=== PATIENT | male | born 1955 | race Caucasian/White ===

== ENCOUNTER 2016-10-29 09:37 | Day surgery (SDC) | payer MEDICARE, BC ==
[~2016-10-29 09:37] MED LIST: RINGERS SOLUTION,LACTATED 1,000 ML IV PRN
[2016-10-29] MEDS ORDERED: LEVOFLOXACIN/D5W 150 ML IV ONE (13:00)
[2016-10-29 14:34] VITALS: BP 130/66
--- NOTE | 2016-10-29 18:08 | OR ---
Operative Report - Dictated Report Narrative: OPERATIVE REPORT DATE OF OPERATION: 10/29/2016 PREOPERATIVE DIAGNOSIS: No prior dedicated colon studies POSTOPERATIVE DIAGNOSIS: Significant sigmoid diverticulosis with diverticulitis (pathology pending). Inflamed rectal polyp (pathology pending) OPERATION: Colonoscopy with colon biopsy at 25 cm and hot biopsy forceps polypectomy in the rectum SURGEON: Stacey Schultz MD ANESTHESIA: MAC Josue Rivera CRNA INDICATIONS FOR PROCEDURE: The patient is a 61-year-old male referred by Dr. Gallo for initial colon screening. There is no family history of colon cancer. He has had several bouts of presumed diverticulitis treated as an outpatient. FINDINGS: Significant sigmoid diverticulosis with inflammation (pathology pending). Inflamed appearing hyperplastic polyp in the rectum (pathology pending) NARRATIVE OF PROCEDURE: The patient was identified in the holding area, and prior to the administration of anesthetic, a multidisciplinary timeout was observed. With the patient in the left lateral position and after the administration of intravenous sedation, the perineum was inspected. There was no evidence of pilonidal disease or skin breakdown. The external appearance of the anus was normal. Sphincter tone was good. The flexible fiberoptic colonoscope was inserted into the rectum which was insufflated with air. The rectal mucosa and submucosal vascular pattern appeared normal with exception of several small nonspecific lymphoid aggregates. The prep was seen to be complete. At approximately 10 cm a hemorrhagic hyperplastic-appearing polyp was encountered. This was bypassed. The scope was advanced through the sigmoid colon which contained numerous diverticular openings and noncontiguous patches of inflamed mucosa which were present up to approximately 40 cm. The scope was advanced up the descending colon which was normal in appearance, and around the splenic flexure where the triangular haustral architecture of the transverse colon was seen. The scope was advanced across the transverse colon, around the hepatic flexure to the cecum, where the confluence of tenia and the ileocecal valve were identified. The mucosa at this level appeared normal. The scope was then slowly withdrawn in a circular fashion so that all aspects of colonic mucosa were inspected. The colon was normal in course and caliber. The haustral architecture appeared well preserved throughout with no evidence of external compression. The mucosa and submucosal vascular pattern of the proximal colon appeared normal, specifically there was no gross evidence to suggest colitis or inflammatory bowel disease and no AV malformations were seen. The inflammation in the sigmoid colon was compatible with diverticulitis. 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 The biopsy site was seen to be hemostatic. No proximal colon polyps were encountered. The scope was gradually withdrawn to the level of the rectum. The polyp in the rectum was biopsied and and thoroughly destroyed with electrocautery. The site was seen to be complete and hemostatic. As much insufflated air as possible was removed. The scope was withdrawn from the patient and the procedure terminated. The patient tolerated the anesthetic and procedure well without complication and was transferred back to the ambulatory surgery area awake and in stable condition. The patient remained stable throughout a period of postoperative observation. He denied abdominal discomfort, was able to tolerate by mouth intake, and was up without assistance. I shared the operative findings with the patient and he was given copies of the photographs which appear in the medical record. He was given a single dose of Levaquin 750 mg IV prior to discharge. He was discharged home with instructions not to engage in hazardous activity today, but may resume normal activity tomorrow, and advance diet as tolerated. He is to continue those medications as listed in the history and physical exam. I made arrangements to contact him with the biopsy reports and will make additional recommendations for treatment and follow-up based upon those results. I suggested a trial of Benefiber on a daily basis pending the results of his biopsies. Reviewed and electronically signed
== END 2016-10-29 09:38 | disposition home or self-care (01) ==
LOC: AMB 09:37
PROVIDERS: ATTEND Surgery
PROC: 0DBP8ZX Excision of Rectum, Via Natural or Artificial Opening Endoscopic, Diagnostic (ICD-10-PCS; principal; 2016-10-29 11:30)
DX: Z12.11 Encounter for screening for malignant neoplasm of colon (principal); K62.1 Rectal polyp; K57.32 Diverticulitis of large intestine without perforation or abscess without bleeding; I10 Essential (primary) hypertension; E78.5 Hyperlipidemia, unspecified; K21.9 Gastro-esophageal reflux disease without esophagitis; F41.1 Generalized anxiety disorder; Z87.891 Personal history of nicotine dependence; Z68.26 Body mass index [BMI] 26.0-26.9, adult

== ENCOUNTER 2020-05-05 20:54 | Observation (INO) ==
[2020-05-05] MEDS ORDERED: DILTIAZEM HCL 5 MG/ML VIAL IV ONE ×2 (21:23→21:56)
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
[2020-05-05] MEDS ORDERED: ENOXAPARIN SODIUM 100 MG/ML SYRG SC SCH (21:30)
[2020-05-05 21:32] LABS: Hematocrit 49.8 % (42.0-52.0); Hemoglobin 17.4 gm/dL (13.5-18.0); Mean Cell Volume 94.1 fl (78-100); Mean Corpuscular Hemoglobin 32.9 pg (27-31); Mean Corpuscular Hgb Conc 34.9 g/dl (32-36); Mean Platelet Volume 9.6 fl (8-11.3); Neutrophil # 6.2 K/mm3 (1.3-6.0); Neutrophil % 51.1 % (42-75.0); Platelet Count 368 K/mm3 (150-450); Red Blood Count 5.29 M/mm3 (4.7-6.0); Red Cell Distribution Width 12.4 % (11.5-14.0); White Blood Count 12.1 K/mm3 (4.0-10.5)
[2020-05-05] MEDS ORDERED: NORMAL SALINE 1,000 ML IV ONE (21:40)
[2020-05-05 21:49] LABS: ALT 23 U/L (19-67); AST 26 U/L (0-48); Albumin * 3.9 gm/dl (3.4-5.0); Alkaline Phosphatase * 102 U/L (50-170); Anion Gap 16.3 mmol/L (6.8-13.8); BUN/Creatinine Ratio 20.1 (9.0-21.6); Bilirubin, Total 0.8 mg/dL (0.0-1.1); Blood Urea Nitrogen 29 mg/dL (6-23); Ca. Corrected For Albumin 9.5 mg/dL (8.4-10.2); Calcium * 9.7 mg/dL (7.9-10.9); Carbon Dioxide 26.7 mmol/L (24-32.6); Chloride 99 mmol/L (97-106); Glucose * 202 mg/dL (70-110); Sodium 139 mmol/L (132-142); Total Protein 8.4 gm/dL (6.2-8.2)
[2020-05-05 21:50] LABS: Troponin I Less than 0.017 ng/mL (0.00-0.10)
[2020-05-05] MEDS ORDERED: METOPROLOL TARTRATE 25 MG TABLET PO ONE (22:13)
[2020-05-05] MEDS ORDERED: POTASSIUM CHLORIDE 10 MEQ in NORMAL SALINE 1,000 ML IV SCH (22:30)
[2020-05-05] MEDS: NORMAL SALINE 1,000 ML IV PRN (23:13)
[2020-05-05] MEDS ORDERED: DILTIAZEM HCL 30 MG TABLET PO ONE (23:45)
[2020-05-06] MEDS ORDERED: POTASSIUM CHLORIDE IN WATER 100 ML IV ONE ×2 (00:03→00:45)
[2020-05-06] MEDS ORDERED: ALPRAZolam 0.25 MG TABLET PO ONE (00:06)
[2020-05-06] MEDS ORDERED: AMIODARONE HCL 200 MG TABLET PO SCH (00:30)
[2020-05-06 06:37] LABS: Anion Gap 14.6 mmol/L (6.8-13.8); Calcium * 8.4 mg/dL (7.9-10.9); Carbon Dioxide 24.6 mmol/L (24-32.6); Estimated Creat Clear 61.8; Potassium 3.2 mmol/L (3.4-4.6)
[2020-05-06] MEDS: NORMAL SALINE 1,000 ML IV PRN ×3 (07:02→23:20)
[2020-05-06] MEDS ORDERED: DILTIAZEM HCL 5 MG/ML VIAL IV ONE (08:45)
[2020-05-06] MEDS ORDERED: METOPROLOL TARTRATE 1 MG/ML AMPUL IV ONE (08:46)
[2020-05-06] MEDS ORDERED: FLUTICASONE PROPIONATE 120 SPRAY INHALER NS PRN (08:52)
[2020-05-06] MEDS ORDERED: DULoxetine HCL 20 MG CAPSULE.SA PO SCH ×2 (09:00→16:15)
[2020-05-06] MEDS ORDERED: ENOXAPARIN SODIUM 40 MG/0.4 ML SYRG SC SCH (09:00)
[2020-05-06] MEDS ORDERED: ENOXAPARIN SODIUM 100 MG/ML SYRG SC SCH (09:00)
[2020-05-06] MEDS ORDERED: METOPROLOL TARTRATE 100 MG TABLET PO SCH ×3 (09:00→21:00)
[2020-05-06] MEDS: PSYLLIUM SEED 1 PACKET PACKET PO SCH (09:28)
[2020-05-06] MEDS: GABAPENTIN 300 MG CAPSULE PO SCH (09:29)
[2020-05-06] MEDS: ACETAMINOPHEN 650 MG TABLET PO SCH (09:29)
[2020-05-06] MEDS: LOSARTAN POTASSIUM 50 MG TABLET PO SCH (10:03)
[2020-05-06] MEDS: HYDROCHLOROTHIAZIDE 12.5 MG CAPSULE PO SCH ×2 (10:03→10:05)
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
[2020-05-06] MEDS ORDERED: DILTIAZEM HCL 60 MG CAP.SR.12H PO SCH (11:00)
[2020-05-06] MEDS ORDERED: DILTIAZEM HCL 60 MG TABLET PO SCH ×2 (11:30→16:25)
[2020-05-06] MEDS: ENOXAPARIN SODIUM 40 MG, ENOXAPARIN SODIUM 30 MG SC SCH ×4 (11:31→21:28)
--- NOTE | 2020-05-06 16:14 | PN ---
[facility] Note - Interim Date: 05/06/20 Time: 16:12 Narrative: 05/06/20 16:13 Sayda heart went back into normal sinus rhythm this afternoon. He is now having some mild bradycardia with heart rate in the upper 40s and lower 50s. I have reduced his diltiazem from 60 mg 3 times daily to 30 mg 3 times daily and have reduced the metoprolol back to 50 mg twice daily from 100 mg twice daily. I will continue to monitor continuously.
[2020-05-06] MEDS ORDERED: GABAPENTIN 600 MG TABLET PO SCH (21:00)
[2020-05-06] MEDS ORDERED: TEMAZEPAM 15 MG CAPSULE PO SCH (21:00)
[2020-05-06] MEDS ORDERED: METOPROLOL TARTRATE 50 MG TABLET ONE (21:17)
[2020-05-06] MEDS ORDERED: DILTIAZEM HCL 30 MG TABLET ONE (21:22)
[2020-05-06] MEDS: DILTIAZEM HCL 60 MG TABLET PO SCH (21:27)
[2020-05-07] MEDS: DILTIAZEM HCL 60 MG TABLET PO SCH (05:17)
[2020-05-07 06:41] LABS: Hematocrit 36.3 % (42.0-52.0); Hemoglobin 12.3 gm/dL (13.5-18.0); Mean Cell Volume 96.8 fl (78-100); Mean Corpuscular Hemoglobin 32.8 pg (27-31); Mean Corpuscular Hgb Conc 33.9 g/dl (32-36); Neutrophil # 4.6 K/mm3 (1.3-6.0); Platelet Count 242 K/mm3 (150-450); Red Blood Count 3.75 M/mm3 (4.7-6.0); Red Cell Distribution Width 12.7 % (11.5-14.0); White Blood Count 8.7 K/mm3 (4.0-10.5)
[2020-05-07 06:58] LABS: Albumin * 2.6 gm/dl (3.4-5.0); Anion Gap 12.3 mmol/L (6.8-13.8); BUN/Creatinine Ratio 16.9 (9.0-21.6); Bilirubin, Total 0.8 mg/dL (0.0-1.1); Ca. Corrected For Albumin 8.8 mg/dL (8.4-10.2); Potassium 3.3 mmol/L (3.4-4.6); Total Protein 5.7 gm/dL (6.2-8.2)
[2020-05-07] MEDS ORDERED: POTASSIUM BICARBONATE/CIT AC 25 MEQ TABLET.EFF PO ONE (08:23)
[2020-05-07] MEDS ORDERED: DULoxetine HCL 20 MG CAPSULE.SA PO SCH (09:00)
[2020-05-07] MEDS ORDERED: METOPROLOL TARTRATE 50 MG TABLET PO SCH (09:00)
--- NOTE | 2020-05-07 09:16 | DS ---
(1) Atrial fibrillation with RVR Problem: Acute (2) Hypokalemia Problem: Acute (3) Below knee amputation status Problem: Chronic Qualifiers: Laterality: left Qualified Code(s): Z89.512 - Acquired absence of left leg below knee (4) GERD (gastroesophageal reflux disease) Problem: Chronic Qualifiers: (5) Prediabetes Problem: Chronic (6) Hyperlipidemia Problem: Chronic Qualifiers: (7) Hypertension Problem: Chronic Qualifiers: Hypertension type: essential hypertension Qualified Code(s): I10 - Essential (primary) hypertension (8) Below knee amputation status Problem: Chronic Date of Discharge:: 05/07/20 Hospital Course: 64-year-old male with a past medical history of hypertension, hyperlipidemia, prediabetes, GERD, anxiety presents from home with complaints of shortness of breath and palpitations. He was found to be in A. fib with RVR. He was started on diltiazem and his metoprolol was continued. He converted on his own. His Brian Vasc score is 1, so he does not warrant anticoagulation. His potassium was also found to be slightly low. He received repletion with both IV and oral potassium. I will have him follow-up with a [facility] hcm developer within 1 to 2 weeks of discharge for further evaluation. He will follow-up with me within 1 to 2 weeks of discharge as well. His heart rate is ranging in the 40-50's so I will hold his metoprolol and continue the diltiazem on discharge. Procedures Performed: none Results and Findings: Lab Pending Results 05/05/20 21:25: WBC 12.1 H, RBC 5.29, Hgb 17.4, Hct 49.8, MCV 94.1, MCH 32.9 H, MCHC 34.9, RDW 12.4, Plt Count 368, MPV 9.6, Immature Gran % (Auto) 0.50 H, Immature Gran # (Auto) 0.06 H, Neutrophils % 51.1, Lymphocytes % 35.2, Monocytes % 11.3 H, Eosinophils % 1.1, Basophils % 0.8, Nucleated RBC % 0.0, Neutrophils # 6.2 H, Lymphocytes # 4.25 H, Monocytes # 1.4 H, Eosinophils # 0.1, Absolute Basophils 0.1 05/05/20 21:25: Sodium 139, Plasma Sodium 141, Potassium 3.0 L, Chloride 99, Carbon Dioxide 26.7, Anion Gap 16.3 H, BUN 29 H, Creatinine 1.44 H, Est GFR (Non-Af Amer) 52 L D, BUN/Creatinine Ratio 20.1, Random Glucose 202 H, Calcium 9.7, Calcium Adj for Albumin 9.5, Total Bilirubin 0.8, AST 26, ALT 23, Alkaline Phosphatase 102, Troponin I Less than 0.017, Total Protein 8.4 H, Albumin 3.9 05/06/20 06:15: Sodium 143 H, Plasma Sodium 143 H, Potassium 3.2 L, Chloride 107 H, Carbon Dioxide 24.6, Anion Gap 14.6 H, BUN 20, Creatinine 1.05, Est GFR (Non- Af Amer) 76 D, BUN/Creatinine Ratio 19.0, Random Glucose 108 D, Calcium 8.4 05/07/20 06:30: WBC 8.7 D, RBC 3.75 L, Hgb 12.3 L, Hct 36.3 L, MCV 96.8, MCH 32.8 H, MCHC 33.9, RDW 12.7, Plt Count 242, MPV 10.0, Immature Gran % (Auto) 0.30, Immature Gran # (Auto) 0.03, Neutrophils % 53.0, Lymphocytes % 33.2, Monocytes % 10.7 H, Eosinophils % 2.1, Basophils % 0.7, Nucleated RBC % 0.0, Neutrophils # 4.6, Lymphocytes # 2.89, Monocytes # 0.9, Eosinophils # 0.2, Absolute Basophils 0.1 05/07/20 06:30: Sodium 141, Plasma Sodium 141, Potassium 3.3 L, Chloride 109 H, Carbon Dioxide 23.0 L, Anion Gap 12.3, BUN 15, Creatinine 0.89, Est GFR (Non-Af Amer) 91, BUN/Creatinine Ratio 16.9, Random Glucose 96, Calcium 8.0, Calcium Adj for Albumin 8.8, Total Bilirubin 0.8, AST 21, ALT 25, Alkaline Phosphatase 64, Total Protein 5.7 L, Albumin 2.6 L Discharge Location: Home Disposition: Home self-care Condition: Stable Discharge Activity: Activity as tolerated Discharge Diet: Consistent carbs Referrals: Deedee Agarwal MD [Primary Care Provider] - Problem Oriented Discharge Instructions to Patient/Family: Atrial Fibrillation, [id number], Preventing Atrial Fibrillation-Related Stroke Additional Patient Instructions (free text): Follow up with [facility] in 1 week. Follow-up with his PCP in 1-2 weeks of discharge. I will discontinue his metoprolo and continue him on dilitiazem. Prescriptions (Any new or edited meds): Diltiazem HCl [Cardizem] 30 mg PO QID #120 tab Transmission Status: Pending to [facility], [place], [place] Complete Home Medications List: Complete Home Medication List: Wheat Dextrin [Benefiber] 1 ea PO DAILY 10/06/16 cetirizine 10 mg tablet 10 mg PO DAILY #30 tab 12/21/19 fluticasone propionate 50 mcg/actuation nasal spray,suspension 1 spray BERRY DAILY PRN #9.9 g 12/21/19 hydrochlorothiazide 12.5 mg tablet 12.5 mg PO DAILY #90 tab 01/11/20 losartan 100 mg tablet 100 mg PO DAILY #90 tab 01/11/20 acetaminophen 650 mg tablet,extended release 650 mg PO DAILY tab 03/22/20 amlodipine 2.5 mg tablet See Rx Instructions .ROUTE .COMPLEX #90 tab 05/01/20 Duloxetine HCl [Cymbalta] See Rx Instructions PO DAILY 05/06/20 Gabapentin 300 mg PO DAILY 05/06/20 Gabapentin 600 mg PO HS 05/06/20 Diltiazem HCl [Cardizem] 30 mg PO QID #120 tab 05/07/20 Forms: Patient Portal Registration
[2020-05-07] MEDS: PSYLLIUM SEED 1 PACKET PACKET PO SCH (10:13)
[2020-05-07] MEDS: HYDROCHLOROTHIAZIDE 12.5 MG CAPSULE PO SCH (10:13)
[2020-05-07] MEDS: GABAPENTIN 300 MG CAPSULE PO SCH (10:14)
[2020-05-07] MEDS: LOSARTAN POTASSIUM 50 MG TABLET PO SCH (10:17)
[2020-05-07] MEDS: ACETAMINOPHEN 650 MG TABLET PO SCH (10:18)
[2020-05-07] MEDS: ENOXAPARIN SODIUM 40 MG, ENOXAPARIN SODIUM 30 MG SC SCH ×2 (10:20)
[2020-05-07 10:54] VITALS: BP 149/91
== END 2020-05-07 11:25 | disposition home or self-care (01) ==
LOC: ER 20:54 → INTOOBSV 23:56 → MS 23:56
PROVIDERS: ADMIT Family Medicine; ATTEND Internal Medicine
DX: I48.20 Chronic atrial fibrillation, unspecified; I10 Essential (primary) hypertension; Z87.891 Personal history of nicotine dependence; E87.6 Hypokalemia; E86.0 Dehydration; Z89.512 Acquired absence of left leg below knee; K21.9 Gastro-esophageal reflux disease without esophagitis; N17.9 Acute kidney failure, unspecified; F41.9 Anxiety disorder, unspecified; R73.03 Prediabetes
CPT/HCPCS: 36415; 71020; 71046; 80048; 80053; 84484; 85025; 93005; 96365; 96366; 96367; 96372; 96375; 96376; 99285; G0378

== ENCOUNTER 2020-05-07 21:15 | Observation (INO) ==
[2020-05-07] MEDS ORDERED: DILTIAZEM HCL 5 MG/ML VIAL IV ONE (21:33)
[2020-05-07] MEDS ORDERED: NORMAL SALINE 1,000 ML IV ONE (21:33)
[2020-05-07] MEDS ORDERED: DILTIAZEM HCL 125 MG in DEXTROSE 5 % IN WATER 100 ML IV PRN ×4 (21:34→22:30)
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
[2020-05-07 21:52] LABS: Hematocrit 43.7 % (42.0-52.0); Mean Corpuscular Hgb Conc 34.3 g/dl (32-36); Mean Platelet Volume 9.8 fl (8-11.3); Neutrophil # 5.6 K/mm3 (1.3-6.0); Neutrophil % 57.2 % (42-75.0); Platelet Count 284 K/mm3 (150-450); Red Blood Count 4.55 M/mm3 (4.7-6.0); Red Cell Distribution Width 12.4 % (11.5-14.0); White Blood Count 9.9 K/mm3 (4.0-10.5)
[2020-05-07 22:11] LABS: ALT 36 U/L (19-67); AST 27 U/L (0-48); Albumin * 3.5 gm/dl (3.4-5.0); Alkaline Phosphatase * 80 U/L (50-170); Anion Gap 12.9 mmol/L (6.8-13.8); BNP * 803 pg/mL (5-175); BUN/Creatinine Ratio 18.1 (9.0-21.6); Bilirubin, Total 0.7 mg/dL (0.0-1.1); Blood Urea Nitrogen 21 mg/dL (6-23); Ca. Corrected For Albumin 9.2 mg/dL (8.4-10.2); Calcium * 9.1 mg/dL (7.9-10.9); Carbon Dioxide 25.3 mmol/L (24-32.6); Chloride 105 mmol/L (97-106); Glucose * 156 mg/dL (70-110); Potassium 3.2 mmol/L (3.4-4.6); Sodium 140 mmol/L (132-142); Total Protein 7.4 gm/dL (6.2-8.2)
[2020-05-07 22:12] LABS: Troponin I Less than 0.017 ng/mL (0.00-0.10)
[2020-05-07] MEDS ORDERED: HEPARIN SODIUM,PORCINE 5,000 UNITS/ML VIAL IV ONE (22:28)
[2020-05-07] MEDS ORDERED: HEPARIN SODIUM,PORCINE/D5W 25,000 UNITS/500 ML BAG IV PRN (22:29)
[2020-05-07 22:48] LABS: INR 1.01 INR (0.92-1.08); Partial Thrombolplastin Time 24.3 Seconds (24-32)
[2020-05-08] MEDS: DILTIAZEM HCL 30 MG TABLET PO SCH ×2 (08:09)
[2020-05-08] MEDS ORDERED: POTASSIUM BICARBONATE/CIT AC 25 MEQ TABLET.EFF PO ONE (08:55)
[2020-05-08] MEDS ORDERED: DILTIAZEM HCL 30 MG TABLET PO SCH (09:00)
[2020-05-08] MEDS ORDERED: DILTIAZEM HCL 60 MG TABLET PO SCH (09:00)
[2020-05-08] MEDS ORDERED: POTASSIUM BICARBONATE/CIT AC 25 MEQ TABLET.EFF ONE ×2 (10:03)
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
[2020-05-08] MEDS ORDERED: DULoxetine HCL 30 MG CAPSULE.SA PO SCH (11:15)
[2020-05-08 15:05] VITALS: BP 133/86
[2020-05-08] MEDS ORDERED: traZODone HCL 50 MG TABLET PO SCH (21:00)
[2020-05-09] MEDS ORDERED: HYDROCHLOROTHIAZIDE 12.5 MG CAPSULE PO SCH (09:00)
== END 2020-05-08 15:25 | disposition home or self-care (01) ==
LOC: ER 21:15 → MS 21:15
PROVIDERS: ADMIT Internal Medicine; ATTEND Internal Medicine
DX: K21.9 Gastro-esophageal reflux disease without esophagitis; Z89.512 Acquired absence of left leg below knee; R73.03 Prediabetes; E87.6 Hypokalemia; Z87.891 Personal history of nicotine dependence; I48.20 Chronic atrial fibrillation, unspecified; E78.5 Hyperlipidemia, unspecified; I10 Essential (primary) hypertension; F41.9 Anxiety disorder, unspecified
CPT/HCPCS: 36415; 80053; 83519; 83735; 83880; 84484; 85025; 85610; 85730; 93005; 96374; 96375; 99284; 99285; G0378

== ENCOUNTER 2020-09-30 17:07 | Inpatient (IN) ==
[2020-09-30] MEDS ORDERED: DILTIAZEM HCL 5 MG/ML VIAL IV ONE (17:25)
[2020-09-30 17:31] LABS: Hematocrit 43.3 % (42.0-52.0); Hemoglobin 14.8 gm/dL (13.5-18.0); Mean Cell Volume 90.8 fl (78-100); Mean Corpuscular Hgb Conc 34.2 g/dl (32-36); Mean Platelet Volume 9.6 fl (8-11.3); Platelet Count 421 K/mm3 (150-450); Red Blood Count 4.77 M/mm3 (4.7-6.0); Red Cell Distribution Width 12.6 % (11.5-14.0); White Blood Count 17.2 K/mm3 (4.0-10.5)
[2020-09-30 17:32] LABS: Total Cells Counted 100
[2020-09-30 17:42] LABS: Prothrombin Time (Patient) 10.7 Seconds (9.1-10.7)
[2020-09-30 17:44] LABS: INR 1.08 INR (0.92-1.08); Partial Thrombolplastin Time 22.6 Seconds (24-32)
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
[2020-09-30 17:48] LABS: ALT 32 U/L (19-67); AST 16 U/L (0-48); Albumin * 3.9 gm/dl (3.4-5.0); Alkaline Phosphatase * 94 U/L (50-170); BUN/Creatinine Ratio 23.5 (9.0-21.6); Bilirubin, Total 0.3 mg/dL (0.0-1.1); Blood Urea Nitrogen 28 mg/dL (6-23); Ca. Corrected For Albumin 9.5 mg/dL (8.4-10.2); Calcium * 9.7 mg/dL (7.9-10.9); Carbon Dioxide 26.8 mmol/L (24-32.6); Chloride 104 mmol/L (97-106); Glucose * 166 mg/dL (70-110); Potassium 3.8 mmol/L (3.4-4.6); Sodium 139 mmol/L (132-142); Total Protein 7.9 gm/dL (6.2-8.2); Troponin I Less than 0.017 ng/mL (0.00-0.10)
[2020-09-30 17:53] LABS: Atypical (Reactive) Lymph 3 % (0-2); Lymphocyte 13 % (20-51); Monocyte 10 % (0-9); Neutrophil 74 % (42-75); Neutrophil # 12.7 K/mm3 (1.3-6.0); Platelet Estimate Normal (NORMAL)
[2020-09-30 17:54] LABS: RBC Morphology Normal (NORMAL)
[2020-09-30] MEDS: DILTIAZEM HCL 125 MG in DEXTROSE 5 % IN WATER 100 ML IV PRN ×2 (18:07)
[2020-09-30] MEDS ORDERED: ENOXAPARIN SODIUM 80 MG/0.8 ML DISP.SYRIN SC ONE (18:11)
[2020-09-30] MEDS ORDERED: ENOXAPARIN SODIUM 100 MG/ML SYRG SC ONE (19:40)
[2020-09-30] MEDS ORDERED: ACETAMINOPHEN 325 MG TABLET PO PRN (20:46)
[2020-09-30] MEDS ORDERED: FLUTICASONE PROPIONATE 120 SPRAY INHALER NS PRN (20:46)
[2020-09-30] MEDS ORDERED: ACETAMINOPHEN 650 MG PO PRN (20:46)
[2020-09-30] MEDS ORDERED: ENOXAPARIN SODIUM 40 MG/0.4 ML SYRG SC SCH (21:00)
[2020-09-30] MEDS: ASPIRIN 81 MG TABLET.DR PO SCH (21:09)
[2020-09-30] MEDS: LORATADINE 10 MG TABLET PO SCH (21:10)
[2020-09-30] MEDS: GABAPENTIN 600 MG TABLET PO SCH (21:21)
[2020-09-30] MEDS: traZODone HCL 50 MG TABLET PO SCH (21:22)
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
[2020-09-30] MEDS ORDERED: ENOXAPARIN SODIUM 80 MG/0.8 ML DISP.SYRIN SC SCH (21:45)
[2020-10-01 06:13] LABS: Hematocrit 42.8 % (42.0-52.0); Hemoglobin 14.5 gm/dL (13.5-18.0); Mean Corpuscular Hemoglobin 31.2 pg (27-31); Mean Corpuscular Hgb Conc 33.9 g/dl (32-36); Mean Platelet Volume 9.7 fl (8-11.3); Platelet Count 386 K/mm3 (150-450); Red Blood Count 4.65 M/mm3 (4.7-6.0); Red Cell Distribution Width 12.8 % (11.5-14.0); White Blood Count 15.3 K/mm3 (4.0-10.5)
[2020-10-01 06:17] LABS: Total Cells Counted 100
[2020-10-01 06:55] LABS: Atypical (Reactive) Lymph 5 % (0-2); Band 3 % (0-2.0); Lymphocyte 15 % (20-51); Monocyte 9 % (0-9); Neutrophil 68 % (42-75); Neutrophil # 10.4 K/mm3 (1.3-6.0)
[2020-10-01 06:56] LABS: Platelet Estimate Normal (NORMAL); RBC Morphology Normal (NORMAL)
[2020-10-01] MEDS: PANTOPRAZOLE SODIUM 20 MG TABLET.DR PO SCH (08:49)
[2020-10-01] MEDS: ASPIRIN 81 MG TABLET.DR PO SCH (08:49)
[2020-10-01] MEDS: LORATADINE 10 MG TABLET PO SCH (08:49)
[2020-10-01] MEDS: amLODIPine BESYLATE 5 MG TABLET PO SCH (08:49)
[2020-10-01] MEDS ORDERED: ENOXAPARIN SODIUM 40 MG, ENOXAPARIN SODIUM 30 MG SC SCH ×2 (09:45)
[2020-10-01] MEDS: DILTIAZEM HCL 125 MG in DEXTROSE 5 % IN WATER 100 ML IV PRN ×2 (10:40)
[2020-10-01] MEDS ORDERED: DILTIAZEM HCL 60 MG TABLET PO SCH ×2 (11:30→16:45)
--- NOTE | 2020-10-01 11:41 | PN ---
Subjective - Date and Time Seen Date: 10/01/20 Time: 10:20 Subjective Narrative: He states he feels better than he did when he first came in. He continues to have some shortness of breath with exertion but denies chest pain or abdominal pain. Objective - Review of Systems Generalized/Overall Review: Denies: Fever Respiratory: Reports: Shortness of Breath - With exertion Cardiac: Denies: Chest Pain Abdominal: Denies: Abdominal Pain Misc: All systems neg except as marked - Vitals Vitals: Last Vital Signs Temp 36.5 C 10/01/20 06:24 Pulse 99 10/01/20 10:40 Resp 16 10/01/20 06:24 BP 144/86 10/01/20 10:40 Pulse Ox 96 10/01/20 10:36 - Abnormal Lab Findings Abnormal Lab Findings: Abnormal Lab Results 09/30/20 09/30/20 09/30/20 Range/Units 17:25 17:25 17:25 WBC 17.2 H (4.0-10.5) K/mm3 RBC (4.7-6.0) M/mm3 MCH (27-31) pg Band Neuts % (Manual) (0-2.0) % Lymphocytes % (Manual) 13 L (20-51) % Monocytes % (Manual) 10 H (0-9) % Neutrophils # (Manual) 12.7 H (1.3-6.0) K/mm3 Monocytes # (Manual) 1.7 H (0.0-1.0) k/mm3 Atypic/Reactive Lymphs 3 H (0-2) % PTT (Woodford) 22.6 L (24-32) Seconds BUN 28 H D (6-23) mg/dL BUN/Creatinine Ratio 23.5 H (9.0-21.6) Random Glucose 166 H (70-110) mg/dL 10/01/20 Range/Units 06:05 WBC 15.3 H (4.0-10.5) K/mm3 RBC 4.65 L (4.7-6.0) M/mm3 MCH 31.2 H (27-31) pg Band Neuts % (Manual) 3 H (0-2.0) % Lymphocytes % (Manual) 15 L (20-51) % Monocytes % (Manual) (0-9) % Neutrophils # (Manual) 10.4 H (1.3-6.0) K/mm3 Monocytes # (Manual) 1.4 H (0.0-1.0) k/mm3 Atypic/Reactive Lymphs 5 H (0-2) % PTT (Woodford) (24-32) Seconds BUN (6-23) mg/dL BUN/Creatinine Ratio (9.0-21.6) Random Glucose (70-110) mg/dL - Exam Constitutional: Present: Alert, Cooperative, Well developed, Well nourished, No distress ENT Exam: Present: hearing grossly normal Neck: Present: non-tender, supple. Absent: lymphadenopathy (R), lymphadenopathy (L) Respiratory: Present: lungs clear, no respiratory distress, no accessory muscle use, No wheezing. Absent: crackles, rhonchi Cardiovascular/Chest: Present: normal peripheral pulses, no edema, no murmur, irregularly irregular Abdomen: Present: Normal bowel sounds, soft, nontender Extremity: Present: no pedal edema, other - Left BKA Skin Exam: Present: normal color, warm/dry Appearance: Present: appropriate appearance, appropriate insight Eye contact: Present: cooperative Thoughts: Present: normal thought pattern Assessment/Plan Plan Narrative: 65-year-old male with a past medical history of attention, hyperlipidemia, imp aired fasting glucose, GERD, anxiety, atrial fibrillation not on anticoagulation due to CHADS2 score presents from home with complaints of palpitations. He was found to be in A. fib with RVR heart rate in the 140s. He was started on a diltiazem drip with good response. He is feeling better today. The diltiazem drip was tapered down to 5 mg/h heart rate continues to be controlled. His [id number] score was previously 1 but now is 2 because he turns 65 years old month. Due to this change anticoagulation will be recommended for him. I will continue him on Lovenox 70 mg twice daily. Pharmacy is checking to see if the direct oral anticoagulants are covered by his insurance. He will either be sent home on warfarin or a DOAC. The leukocytosis is likely reactive and secondary to a recent steroid joint injection. He has no other systemic signs of infection. White blood cell count is also trending downwards Plan #1 transition him back to oral diltiazem #2 continue with home medications for comorbidities #3 continue with telemetry #4 continue with anticoagulation - Problems/Diagnosis (1) Atrial fibrillation with RVR Problem: Acute (2) Leukocytosis Problem: Acute Qualifiers: Leukocytosis type: other Qualified Code(s): D72.828 - Other elevated white blood cell count (3) Anxiety Problem: Chronic (4) Below knee amputation status Problem: Chronic Qualifiers: Laterality: left Qualified Code(s): Z89.512 - Acquired absence of left leg below knee (5) GERD (gastroesophageal reflux disease) Problem: Chronic Qualifiers:
[2020-10-01] MEDS: DILTIAZEM HCL PO SCH ×2 (16:55)
[2020-10-01] MEDS ORDERED: DILTIAZEM HCL 30 MG TABLET PO SCH (17:00)
[2020-10-01] MEDS ORDERED: METOPROLOL TARTRATE 1 MG/ML AMPUL IV ONE (18:16)
[2020-10-01] MEDS: GABAPENTIN 600 MG TABLET PO SCH (20:55)
[2020-10-01] MEDS: traZODone HCL 50 MG TABLET PO SCH (20:56)
[2020-10-01] MEDS: ENOXAPARIN SODIUM 80 MG/0.8 ML DISP.SYRIN SC SCH (21:00)
[2020-10-02] MEDS: DILTIAZEM HCL PO SCH ×4 (00:44→08:49)
[2020-10-02 06:50] LABS: Hemoglobin 14.8 gm/dL (13.5-18.0); Mean Cell Volume 91.1 fl (78-100); Mean Corpuscular Hemoglobin 30.6 pg (27-31); Mean Corpuscular Hgb Conc 33.6 g/dl (32-36); Mean Platelet Volume 9.7 fl (8-11.3); Platelet Count 413 K/mm3 (150-450); Red Blood Count 4.83 M/mm3 (4.7-6.0); Red Cell Distribution Width 12.7 % (11.5-14.0); White Blood Count 16.2 K/mm3 (4.0-10.5)
[2020-10-02] MEDS: PANTOPRAZOLE SODIUM 20 MG TABLET.DR PO SCH (07:06)
[2020-10-02] MEDS: ENOXAPARIN SODIUM 80 MG/0.8 ML DISP.SYRIN SC SCH (07:06)
[2020-10-02] MEDS: LORATADINE 10 MG TABLET PO SCH (08:48)
[2020-10-02] MEDS: ASPIRIN 81 MG TABLET.DR PO SCH (08:48)
[2020-10-02] MEDS: amLODIPine BESYLATE 5 MG TABLET PO SCH (08:50)
[2020-10-02] MEDS ORDERED: ENOXAPARIN SODIUM 40 MG/0.4 ML SYRG SC SCH (09:00)
--- NOTE | 2020-10-02 11:01 | DS ---
(1) Atrial fibrillation with RVR Problem: Acute (2) Leukocytosis Problem: Acute Qualifiers: Leukocytosis type: other Qualified Code(s): D72.828 - Other elevated white blood cell count (3) Anxiety Problem: Chronic (4) Below knee amputation status Problem: Chronic Qualifiers: Laterality: left Qualified Code(s): Z89.512 - Acquired absence of left leg below knee (5) GERD (gastroesophageal reflux disease) Problem: Chronic Qualifiers: (6) Prediabetes Problem: Chronic (7) Hypertension Problem: Chronic Qualifiers: Hypertension type: essential hypertension Qualified Code(s): I10 - Essential (primary) hypertension (8) Below knee amputation status Problem: Chronic Hospital Course: 65-year-old male with a past medical history of attention, hyperlipidemia, impaired fasting glucose, GERD, anxiety, atrial fibrillation not on anticoagulation due to CHADS2 score presents from home with complaints of palpitations. He was found to be in A. fib with RVR heart rate in the 140s. He was started on a diltiazem drip with good response. He is feeling better today. The diltiazem drip was tapered down to 5 mg/h heart rate continues to be controlled. His [id number] score was previously 1 but now is 2 because he turns 65 years old month. Due to this change anticoagulation will be recommended for him. I will continue him on Lovenox 70 mg twice daily. Pharmacy is checking to see if the direct oral anticoagulants are covered by his insurance. He will either be sent home on warfarin or a DOAC. The leukocytosis is likely reactive and secondary to a recent steroid joint injection. He has no other systemic signs of infection. White blood cell count is also trending downwards. Heart rate has improved with the increased dose on the diltiazem. He will go home on warfarin 5 mg daily. He will follow up with the Coumadin clinic. He is stable for discharge home today. He will follow-up with his bobbin disker within the next 1 to 2 weeks. He also follow-up with me in 1 to 2 weeks. Procedures Performed: none Results and Findings: Lab Pending Results 09/30/20 17:25: WBC 17.2 H, RBC 4.77, Hgb 14.8, Hct 43.3, MCV 90.8, MCH 31.0, MCHC 34.2, RDW 12.6, Plt Count 421, MPV 9.6, Neutrophils % (Manual) 74, Lymphocytes % (Manual) 13 L, Monocytes % (Manual) 10 H, Neutrophils # (Manual) 12.7 H, Lymphocytes # (Manual) 2.2, Monocytes # (Manual) 1.7 H, Atypic/Reactive Lymphs 3 H, Platelet Estimate Normal, RBC Morphology Normal 09/30/20 17:25: PT 10.7, INR (Anticoag Therapy) 1.08, PTT (Antonina) 22.6 L 09/30/20 17:25: Sodium 139, Plasma Sodium 140, Potassium 3.8, Chloride 104, Carbon Dioxide 26.8, Anion Gap 12.0, BUN 28 H D, Creatinine 1.19, Est GFR (Non- Af Amer) 65, BUN/Creatinine Ratio 23.5 H, Random Glucose 166 H, Calcium 9.7, Calcium Adj for Albumin 9.5, Total Bilirubin 0.3, AST 16, ALT 32, Alkaline Phosphatase 94, Troponin I Less than 0.017, Total Protein 7.9, Albumin 3.9 09/30/20 18:07: SARS-CoV-2 (PCR) Not detected 10/01/20 06:05: WBC 15.3 H, RBC 4.65 L, Hgb 14.5, Hct 42.8, MCV 92.0, MCH 31.2 H, MCHC 33.9, RDW 12.8, Plt Count 386, MPV 9.7, Neutrophils % (Manual) 68, Band Neuts % (Manual) 3 H, Lymphocytes % (Manual) 15 L, Monocytes % (Manual) 9, Neutrophils # (Manual) 10.4 H, Lymphocytes # (Manual) 2.3, Monocytes # (Manual) 1.4 H, Atypic/Reactive Lymphs 5 H, Platelet Estimate Normal, RBC Morphology Normal 10/02/20 06:15: WBC 16.2 H, RBC 4.83, Hgb 14.8, Hct 44.0, MCV 91.1, MCH 30.6, MCHC 33.6, RDW 12.7, Plt Count 413, MPV 9.7, Immature Gran % (Auto) 0.90 H, Immature Gran # (Auto) 0.15 H, Neutrophils % 74.0, Lymphocytes % 15.7 L, Monocytes % 8.8, Eosinophils % 0.1, Basophils % 0.5, Nucleated RBC % 0.0, Neutrophils # 12.0 H, Lymphocytes # 2.54, Monocytes # 1.4 H, Eosinophils # 0.0, Absolute Basophils 0.1 Discharge Location: Home Disposition: Home self-care Condition: Good Discharge Activity: Activity as tolerated Discharge Diet: General/regular food Referrals: Deedee Carrillo MD [Staff Physician] - Problem Oriented Discharge Instructions to Patient/Family: Atrial Fibrillation, [id number] Additional Patient Instructions (free text): Patient will need a cardiology follow-up @ discharge. Prescriptions (Any new or edited meds): Warfarin Sodium [Coumadin] 5 mg PO QPM #30 tab Transmission Status: Received by [place], [place] Diltiazem HCl [Diltiazem 24Hr ER] 360 mg PO DAILY #30 cap.er.24h Transmission Status: Received by [facility], [place], [place] Complete Home Medications List: Complete Home Medication List: Wheat Dextrin [Benefiber] 1 ea PO DAILY 10/06/16 fluticasone propionate 50 mcg/actuation nasal spray,suspension 1 spray BERRY DAILY PRN #9.9 g 12/21/19 trazodone 50 mg tablet 25 mg PO HS #30 tab 05/17/20 aspirin 81 mg tablet,delayed release 81 mg PO DAILY 05/23/20 acetaminophen 650 mg tablet,extended release 650 mg PO DAILY PRN tab 06/21/20 omeprazole 20 mg capsule,delayed release 20 mg PO DAILY 06/21/20 cetirizine 10 mg tablet 10 mg PO DAILY #30 tab 07/02/20 gabapentin 600 mg tablet 600 mg PO HS #90 tab 07/30/20 amlodipine 2.5 mg tablet 2.5 mg PO DAILY tab 09/26/20 Diltiazem HCl [Diltiazem 24Hr ER] 360 mg PO DAILY #30 cap.er.24h 10/02/20 Warfarin Sodium [Coumadin] 5 mg PO QPM #30 tab 10/02/20 Forms: Patient Portal Registration
[2020-10-02 12:49] VITALS: BP 155/107
[2020-10-02] MEDS ORDERED: DILTIAZEM HCL 90 MG TABLET PO SCH (15:00)
== END 2020-10-02 12:53 | disposition home or self-care (01) | DRG 310 ==
LOC: ER 17:07 → MS 17:07 → OBSVTOIN 19:32 → MS 19:51
PROVIDERS: ADMIT Family Medicine; ATTEND Internal Medicine